=== PATIENT | male | born 1985 | race Native Hawaiian/Other Pacific Islander ===

== ENCOUNTER 2019-04-20 07:28 | Emergency (ER) | payer OTHER ==
[~2019-04-20] VITALS: Ht 177.8 cm; Wt 134.5 kg
[2019-04-20 07:32] VITALS: BP 137/85; TEMP 98.3
[2019-04-20] MEDS ORDERED: ULTRAM ER100 MG PO (08:22)
[2019-04-20] MEDS ORDERED: PREDNISONE20 MG PO (08:39)
[2019-04-20] MEDS ORDERED: LIDODERM 5% PATC1 EA TP (08:40)
[2019-04-20] MEDS ORDERED: NORCO 325 MG-51 TAB PO (08:40)
[2019-04-20] MEDS ORDERED: NEURONTIN300 MG/CAP PO (08:50)
[2019-04-20 09:15] VITALS: PULSE 89
== END 2019-04-20 09:15 | disposition home or self-care (01) ==
LOC: COL.ER 07:28
DX: M54.5 Low back pain (principal); F43.10 Post-traumatic stress disorder, unspecified
CPT/HCPCS: J1170; J1885

== ENCOUNTER → 2019-12-16 | Outpatient (CLI) | payer OTHER ==
[~2019-12-16] MED LIST: LIDODERM 5% PATC1 EA TP; NEURONTIN300 MG/CAP PO; NORCO 325 MG-51 TAB PO; PREDNISONE20 MG PO; ULTRAM ER100 MG PO
== END ==
LOC: MHCPAIN 15:01
DX: M47.817 Spondylosis without myelopathy or radiculopathy, lumbosacral region (principal); M54.2 Cervicalgia; M54.6 Pain in thoracic spine; M54.5 Low back pain; G89.29 Other chronic pain
CPT/HCPCS: G0463

== ENCOUNTER 2023-08-25 22:27 | Emergency (ER) | payer OTHER ==
[~2023-08-25] VITALS: Ht 177.8 cm; Wt 131.8 kg
[~2023-08-25 22:27] MED LIST changes: +FLEXERIL 1010 MG/TAB PO; +GRALISE300 MG PO; +MEDROL 4MG DOSPA4 MG PO; +MOTRIN 800800 MG/TAB PO; +NAPROSYN500 MG PO; +PERCOCET 325 MG1 TA2 PO; +VALIUM 5MG T5 MG/TAB PO
[2023-08-25 23:05] VITALS: BP 135/87; TEMP 98.8
[2023-08-25] MEDS ORDERED: Cyclobenzaprine 10 MG TAB PO ONE (23:45)
[2023-08-25] MEDS ORDERED: oxyCODONE 5 MG TAB PO ONE (23:45)
[2023-08-25] MEDS ORDERED: Ketorolac 60 MG/2 ML VIAL IM ONE (23:45)
[2023-08-25] MEDS ORDERED: Lidocaine 4% Topical Patch TP ONE (23:45)
[2023-08-25] MEDS ORDERED: Acetaminophen 500 MG TAB PO ONE (23:45)
[2023-08-26] VITALS: PULSE 90
== END 2023-08-26 | disposition home or self-care (01) ==
LOC: COL.ER 22:27
DX: M54.50 Low back pain, unspecified (principal)
CPT/HCPCS: J1885

== ENCOUNTER 2023-09-08 19:38 | Observation (INO) | payer OTHER ==
[~2023-09-08] VITALS: Ht 177.8 cm; Wt 93.5 kg
[2023-09-08] MEDS ORDERED: NS 1,000 ML IV ONE (20:00)
[2023-09-08 20:18] LABS: BASO % 0.4 % (0.0-2.0); EOS # 0.3 K/mm3 (0.0-0.7); EOS % 2.5 % (0.0-4.0); GRAN # 6.5 K/mm3 (1.4-6.5); GRAN % 63.1 % (42.2-75.2); HEMATOCRIT 41.9 % (42.0-52.0); HEMOGLOBIN 13.9 g/dl (13.5-18.0); LYMPH # 2.7 K/mm3 (1.2-3.4); LYMPH % 26.4 % (20.0-51.0); MEAN CELL VOLUME 89 fl (80.0-100.0); MEAN CORPUSCULAR HEMOGLOBIN 30 pg (27-31); MEAN CORPUSCULAR HGB CONC 33 g/dl (33.0-37.0); MEAN PLATELET VOLUME 8.8 fl (7.4-10.4); MONO # 0.8 K/mm3 (0.1-0.6); MONO % 7.4 % (1.7-9.3); PLATELET COUNT 286 K/mm3 (130-400); REDCELL DISTRIBUTION WIDTH-CV 12.5 % (11.5-14.5)
[2023-09-08 20:22] LABS: ERYTHROCYTE SEDIMENTATION RATE 46 mm/hr (0-15)
[2023-09-08 20:35] LABS: ALBUMIN 3.7 g/dL (3.5-5.0); BILIRUBIN,TOTAL 0.6 mg/dL (0.2-1.2); C-REACTIVE PROTEIN 13.14 mg/dL (0.00-0.50); CREATININE, serum 1.12 mg/dL (0.72-1.25); POTASSIUM 3.5 mEq/L (3.5-4.5); TOTAL PROTEIN 7.9 g/dl (6.2-8.1)
[2023-09-08 21:22] LABS: COLLECTION METHOD CLEAN CATCH
[2023-09-08] MEDS ORDERED: oxyCODONE/Acetaminophen 5-325 MG TAB PO ONE (21:30)
[2023-09-08 21:31] LABS: URINE APPEARANCE CLEAR (CLEAR/HAZY); URINE BLOOD NEGATIVE (NEGATIVE); URINE COLOR YELLOW (YELLOW); URINE GLUCOSE NEGATIVE (NEGATIVE); URINE KETONE TRACE (NEGATIVE); URINE NITRATE NEGATIVE (NEGATIVE); URINE PROTEIN(semi-quant) TRACE (NEGATIVE)
[2023-09-08] MEDS ORDERED: Ondansetron 4 MG/2 ML VIAL IV PRN (23:00)
[2023-09-08] MEDS ORDERED: Ketorolac 30 MG/ML VIAL IV PRN (23:00)
[2023-09-08] MEDS ORDERED: oxyCODONE 5 MG TAB PO PRN (23:00)
[2023-09-08] MEDS ORDERED: Acetaminophen 325 MG TAB PO PRN (23:00)
--- NOTE | 2023-09-08 23:30 | NUR ---
PT ADMITTED TO ROOM 349 VS STABLE. LT ANKLE PROFOUNDLY SWOLLEN. PATIENT C/O 7/10 PAIN. AXO X4. ORIENTED TO ROOM.
[2023-09-08] MEDS ORDERED: PROZAC 10MG10 MG PO (23:50)
[2023-09-08] MEDS ORDERED: FLEXERIL 1010 MG/TAB PO (23:52)
[2023-09-08 23:55] VITALS: BP 117/64; PULSE 74; TEMP 98.8
--- NOTE | 2023-09-08 23:55 | NUR ---
PATIENT C/O OF 12/07 LT ANKLE PAIN. PRN EMILY GIVEN.
[2023-09-09] VITALS (14 sets, daily range): BP systolic 117–138; BP diastolic 68–88; PULSE 66–73; TEMP 97.5–98.1
[2023-09-09] MEDS ORDERED: ceFAZolin 2 G in Water For Injection,Sterile 20 ML IV SCH
--- NOTE | 2023-09-09 02:36 | NUR ---
PATIENT RESTING ON LT SIDE. ICE PLACED ON LT ANKLE AND EXTREMITY ELEVATED.
[2023-09-09 06:52] LABS: BASO # 0.1 K/mm3 (0.0-0.2); BASO % 0.6 % (0.0-2.0); EOS # 0.4 K/mm3 (0.0-0.7); EOS % 3.4 % (0.0-4.0); GRAN # 7.3 K/mm3 (1.4-6.5); GRAN % 67.4 % (42.2-75.2); HEMATOCRIT 39.9 % (42.0-52.0); HEMOGLOBIN 13.5 g/dl (13.5-18.0); LYMPH # 2.1 K/mm3 (1.2-3.4); LYMPH % 19.8 % (20.0-51.0); MEAN CELL VOLUME 89 fl (80.0-100.0); MEAN CORPUSCULAR HEMOGLOBIN 30 pg (27-31); MEAN CORPUSCULAR HGB CONC 34 g/dl (33.0-37.0); MEAN PLATELET VOLUME 9.1 fl (7.4-10.4); MONO # 0.9 K/mm3 (0.1-0.6); MONO % 8.5 % (1.7-9.3); PLATELET COUNT 299 K/mm3 (130-400); REDCELL DISTRIBUTION WIDTH-CV 12.5 % (11.5-14.5)
[2023-09-09 07:11] LABS: CALCIUM 9.3 mg/dL (8.4-10.2); CREATININE, serum 1.04 mg/dL (0.72-1.25); POTASSIUM 3.5 mEq/L (3.5-4.5)
--- NOTE | 2023-09-09 10:58 | NUR ---
PATIENT ALERT AND ORIENTED X4. VSS. PATIENT HERE FOR LEFT ANKLE SWELLING, PATIENT RATES PAIN 7/10, REQUESTS PAIN MEDICATION. MIKAYLA WRAP APPLIED TO LEFT ANKLE PER ORDER, ICE PACK APPLIED AND ELEVATED ON PILLOWS. ASSESSMENT PERFORMED. IV TO LEFT AC INT AND FLUSHES WELL. PATIENT ON RA. AM MEDS ADMINISTERED. PATIENT RESTING IN BED, CALL LIGHT IN REACH. BED ALARM ON.
--- NOTE | 2023-09-09 11:27 | NUR ---
[employer] Sales Representative met with patient to complete discharge planning intake. Patient verified that he lives in [place] with his Toshia ([phone]). Patient is seen at the [facility] and is on the Blue Team. Patient uses [facility] and uses a cane or crutches. Patient denies having a DPOA and declines to complete one at this time. No discharge needs identified at this time. Discharge plan: Home
[2023-09-09] MEDS ORDERED: FLUoxetine 10 MG TAB PO SCH (13:29)
[2023-09-09] MEDS ORDERED: Cyclobenzaprine 10 MG TAB PO PRN (13:30)
[2023-09-09] MEDS ORDERED: Gabapentin 300 MG CAP PO PRN ×2 (13:30)
--- NOTE | 2023-09-09 20:45 | NUR ---
Assessment complete. A&Ox3. Denies nausea/shortness of breath. VS stable. Rating pain 5/10 on pain scale to left ankle-oxycodone given per dr order. Fresh ice pack applied. MIKAYLA bandage intact and elevated on pillow. Left AC 20g flushes without difficulty. Plan of care discussed for this shift to include meds/pain control/ice/calling for questions/concerns. Verbalizes understanding. call light in reach. Will monitor.
--- NOTE | 2023-09-10 00:33 | NUR ---
Patient rating pain 7/10 on pain scale to left ankle. Oxycodone given per dr order. Will monitor.
[2023-09-10 03:28] VITALS: BP 127/84; PULSE 70; TEMP 98.1
[2023-09-10 04:49] VITALS: BP_SYST 127
--- NOTE | 2023-09-10 05:45 | NUR ---
Patient rested off and on this shift. Received flexeril/oxycodone this AM for pain to left ankle/lower extremity. Denied nausea/shortness of breath. VS stable. 20g left AC INT flushes without difficulty with no s/s of pain or discomfort. MIKAYLA bandage to left ankle with ice and elevation. Denies current needs. Call light in reach. Will monitor.
[2023-09-10] MEDS ORDERED: Triamcinolone 40 MG/ML 1 ML VIAL IJ ONE (06:35)
--- NOTE | 2023-09-10 07:00 | NUR ---
Pt doing well during shift change. Pt had injection done by ortho recently. Ankle is ana wrapped and elevated on pillow. Pt denies needs at this time, will continue to monitor
[2023-09-10 07:30] LABS: CALCIUM 9.4 mg/dL (8.4-10.2); CREATININE, serum 1.05 mg/dL (0.72-1.25); POTASSIUM 3.9 mEq/L (3.5-4.5)
[2023-09-10 08:13] VITALS: BP 135/90; PULSE 70; TEMP 98.1
[2023-09-10 08:44] LABS: BASO # 0.1 K/mm3 (0.0-0.2); BASO % 0.8 % (0.0-2.0); EOS # 0.4 K/mm3 (0.0-0.7); EOS % 5.4 % (0.0-4.0); GRAN # 4.2 K/mm3 (1.4-6.5); GRAN % 55.5 % (42.2-75.2); HEMATOCRIT 40.5 % (42.0-52.0); HEMOGLOBIN 13.2 g/dl (13.5-18.0); LYMPH # 2.3 K/mm3 (1.2-3.4); LYMPH % 30.1 % (20.0-51.0); MEAN CELL VOLUME 91 fl (80.0-100.0); MEAN CORPUSCULAR HEMOGLOBIN 30 pg (27-31); MEAN CORPUSCULAR HGB CONC 33 g/dl (33.0-37.0); MEAN PLATELET VOLUME 8.9 fl (7.4-10.4); MONO # 0.6 K/mm3 (0.1-0.6); MONO % 8.1 % (1.7-9.3); PLATELET COUNT 301 K/mm3 (130-400); RED BLOOD COUNT 4.43 M/mm3 (4.20-5.60); REDCELL DISTRIBUTION WIDTH-CV 12.4 % (11.5-14.5)
[2023-09-10] MEDS ORDERED: COLCRYS0.6 MG PO (09:04)
[2023-09-10 09:49] VITALS: BP_SYST 135
[2023-09-10 12:15] VITALS: BP 130/80; PULSE 81; TEMP 98.3
--- NOTE | 2023-09-10 12:17 | NUR ---
Reviewed discharge instructions with pt. Discussed follow up appointment, pt stated he would make own [facility] follow up. Discussed with [employer] [employer] about faxing his paperwork. INT removed.
--- NOTE | 2023-09-10 12:40 | NUR ---
I did talk to pts on the phone regarding discharge. Reviewed discharge instructions with her per pts request. All questions answered
--- NOTE | 2023-09-10 13:21 | NUR ---
harm reduction worker was notified patient would like his discharge orders faxed to his PCP at the [place]. АЛЕКСАНДР contacted Ana Cristina, telephonic case manager at the [facility], whom provided the fax number for the medical records F# [phone]. Ana Cristina explained medical records then sends it to the patient's PCP for follow up appointments. АЛЕКСАНДР faxed the discharge orders to the number above. Discharge plan: Home
[2023-10-23] MEDS ORDERED: FLEXERIL 1010 MG/TAB PO (10:14)
== END 2023-09-10 13:00 | disposition home or self-care (01) ==
LOC: COL.ER 19:38 → SURG 22:51
PROVIDERS: Family Medicine; Physician Assistant; ADMIT Internal Medicine
DX: M25.572 Pain in left ankle and joints of left foot (principal); R60.0 Localized edema
CPT/HCPCS: G0378; J0665; J0690; J1885; J3301; J7030

== ENCOUNTER 2023-11-16 10:08 | Emergency (ER) | payer OTHER ==
[~2023-11-16] VITALS: Ht 177.8 cm; Wt 122.7 kg
[~2023-11-16 10:08] MED LIST changes: +COLCRYS0.6 MG PO; +PROZAC 10MG10 MG PO
[2023-11-16 10:18] VITALS: TEMP 98.6
[2023-11-16] MEDS ORDERED: Ketorolac 30 MG/ML VIAL IV ONE (11:00)
[2023-11-16 11:16] LABS: BASO # 0.1 K/mm3 (0.0-0.2); BASO % 0.6 % (0.0-2.0); EOS # 0.6 K/mm3 (0.0-0.7); EOS % 5.6 % (0.0-4.0); GRAN # 6.5 K/mm3 (1.4-6.5); GRAN % 62.6 % (42.2-75.2); HEMATOCRIT 43.4 % (42.0-52.0); HEMOGLOBIN 13.7 g/dl (13.5-18.0); LYMPH # 2.4 K/mm3 (1.2-3.4); LYMPH % 23.4 % (20.0-51.0); MEAN CELL VOLUME 90 fl (80.0-100.0); MEAN CORPUSCULAR HEMOGLOBIN 29 pg (27-31); MEAN CORPUSCULAR HGB CONC 32 g/dl (33.0-37.0); MEAN PLATELET VOLUME 8.6 fl (7.4-10.4); MONO # 0.8 K/mm3 (0.1-0.6); MONO % 7.5 % (1.7-9.3); PLATELET COUNT 302 K/mm3 (130-400); RED BLOOD COUNT 4.81 M/mm3 (4.20-5.60); REDCELL DISTRIBUTION WIDTH-CV 12.3 % (11.5-14.5)
[2023-11-16 11:28] LABS: ERYTHROCYTE SEDIMENTATION RATE 22 mm/hr (0-15)
[2023-11-16 11:34] LABS: ALANINE AMINOTRANSFERASE 13 U/L (0-55); ALBUMIN 3.7 g/dL (3.5-5.0); ALKALINE PHOSPHATASE 82 U/L (40-150); ANION GAP 10 mmol/L (7-16); AST,SGOT 13 U/L (5-34); BILIRUBIN,TOTAL 0.7 mg/dL (0.2-1.2); BLOOD UREA NITROGEN 7 mg/dL (9-21); CALCIUM 9.5 mg/dL (8.4-10.2); CHLORIDE 106 mEq/L (98-107); CREATININE, serum 0.99 mg/dL (0.72-1.25); GLUCOSE 100 mg/dL (70-99); POTASSIUM 3.8 mEq/L (3.5-4.5); SODIUM 141 mEq/L (136-145); TOTAL PROTEIN 7.3 g/dl (6.2-8.1)
[2023-11-16 11:42] LABS: TROPONIN-I < 0.010 ng/mL (0.00-0.033)
[2023-11-16] MEDS ORDERED: Morphine 4 MG/ML VIAL IV ONE (12:00)
[2023-11-16] MEDS ORDERED: PREDNISONE50 MG PO (12:08)
[2023-11-16 13:19] VITALS: BP 134/89; PULSE 72
== END 2023-11-16 13:19 | disposition home or self-care (01) ==
LOC: COL.ER 10:08
PROVIDERS: Physician Assistant
DX: M62.838 Other muscle spasm (principal); Z87.891 Personal history of nicotine dependence
CPT/HCPCS: J1885; J2270; J2360

== ENCOUNTER 2023-12-06 18:58 | Emergency (ER) | payer OTHER ==
[~2023-12-06] VITALS: Ht 177.8 cm; Wt 119.1 kg
[~2023-12-06 18:58] MED LIST changes: +PREDNISONE50 MG PO
[2023-12-06 19:02] VITALS: TEMP 97.7
[2023-12-06] MEDS ORDERED: Ketorolac 30 MG/ML VIAL IM ONE (20:00)
[2023-12-06] MEDS ORDERED: Cyclobenzaprine 10 MG TAB PO ONE (20:00)
[2023-12-06 20:53] VITALS: BP 136/97; PULSE 86
== END 2023-12-06 20:58 | disposition home or self-care (01) ==
LOC: COL.ER 18:58
DX: M62.830 Muscle spasm of back (principal); R22.9 Localized swelling, mass and lump, unspecified
CPT/HCPCS: J1885

== ENCOUNTER 2023-12-25 06:51 | Emergency (ER) | payer OTHER ==
[~2023-12-25] VITALS: Ht 177.8 cm; Wt 120.5 kg
[2023-12-25 06:58] VITALS: TEMP 98.3
[2023-12-25] MEDS ORDERED: FLEXERIL 1010 MG/TAB PO (07:26)
[2023-12-25] MEDS ORDERED: PREDNISONE10 MG PO (07:26)
[2023-12-25] MEDS ORDERED: Ketorolac 60 MG/2 ML VIAL IM ONE (07:30)
[2023-12-25 07:38] VITALS: BP 133/95; PULSE 101
== END 2023-12-25 07:46 | disposition home or self-care (01) ==
LOC: COL.ER 06:51
DX: M25.562 Pain in left knee (principal)
CPT/HCPCS: J1885

== ENCOUNTER 2024-02-15 22:15 | Emergency (ER) | payer OTHER ==
[~2024-02-15] VITALS: Ht 177.8 cm; Wt 127.3 kg
[~2024-02-15 22:15] MED LIST changes: +PREDNISONE10 MG PO
[2024-02-15 22:24] VITALS: TEMP 97
[2024-02-15] MEDS ORDERED: Ketorolac 30 MG/ML VIAL IV ONE (23:00)
[2024-02-15] MEDS ORDERED: TORADOL 10MG TA10 MG PO (23:16)
[2024-02-15] MEDS ORDERED: FLEXERIL 1010 MG/TAB PO (23:16)
[2024-02-15 23:45] VITALS: BP 123/82; PULSE 112
== END 2024-02-15 23:45 | disposition home or self-care (01) ==
LOC: COL.ER 22:15
DX: M54.42 Lumbago with sciatica, left side (principal)
CPT/HCPCS: J1885; J2360